=== PATIENT | female | born 1985 | race Caucasian/White ===

== ENCOUNTER 2022-03-26 07:27 | Inpatient (IN) | payer BC ==
[2022-03-26] VITALS (31 sets, daily range): BP systolic 106–150; BP diastolic 55–85
[~2022-03-26] VITALS: Ht 162.6 cm; Wt 94.7 kg
[~2022-03-26 07:27] MED LIST: AC325T PO; AC500T PO; AMOX500C2 PO; BSP10T PO; CIPR500T78 PO; CLC500CT PO; FRS325T PO; HYDR-3456 PO; HYDR-690 PO; HYDR1TAB PO; IBP600T1 PO; IRON1TAB94 PO; LORA10TA7 PO; LVT.05T PO; NITR100C3 PO; ONDAN4ODT PO; PANT40TA PO; PREN1TAB39 PO; PREN1TAB71 PO; PS30T PO; SERT25TA PO
--- OUTSIDE RECORDS SUMMARY | 2022-03-26 07:31 | XMS REPORT ---
Author Author [facility] Address Unknown Phone Unavailable Care Team Providers Care Burner Tender Name Role Phone Migration, Doctor Unavailable Unavailable PROBLEMS Type Condition ICD9-CM Code GNY86-CQ Code Onset Dates Condition S tatus W/U Status Risk SNOMED Code Notes Problem Insomnia, unspecified G47.00 Active confirmed 772967294 Problem Obstruction of bile duct K83.1 Active confirmed 91674164 Problem Other migraine without status migrainosus, not intractable G43.809 Active confirmed 82008887 Problem Herpes simplex without complication B00.9 Acti ve confirmed 07506595 Problem H/O nipple discharge Z87.898 Active confirmed 419858797 Problem Family history of breast cancer Z80.3 Active confi rmed 063591386 Problem Hypothyroidism, unspecified type E03.9 Active conf irmed 18319100 Problem Surveillance of contraceptive injection Z30.42 Active confirmed 242800789 Problem DUB (dysfunctional uterine bleeding) N93.8 Act gigi confirmed 67338034 Problem Dysthymia F34.1 Active confirmed 44335580 Problem Primary insomnia F51.01 Active confirmed 397 2004 Problem Autoimmune thyroiditis E06.3 Active confirmed 48765153 Problem Major depressive disorder, single episode, unspecified F32.9 Active confirmed 96828713 Problem Family history of diabetes mellitus Z83.3 Acti ve confirmed 018931826 Problem Hypothyroidism, unspecified E03.9 Active confirmed 41901679 Problem Seasonal allergic rhinitis, unspecified allergic rhinitis trigger J30.2 Active confirmed 720451622 Problem Calculus of kidney N20.0 Active confirmed 9 1011809 Problem Other chronic pain G89.29 Active confirmed 8 6655698 Problem LGSIL on Pap smear of cervix R87.612 Active con firmed [id number] Problem 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 Ac tive confirmed 863087370 Problem Other specified hypothyroidism E03.8 Active confir med 435771739 ALLERGIES Allergen (clinical drug ingredient) Drug/Non Drug Allergy do cumented on EMR Reaction Allergy Type Onset Date Status [place] Unknown Non Drug Allergy Activ e ENCOUNTERS from 1986 to 2022-02-14 Encounter Location Date Provider Diagnosis [facility] [address] [facility] [id number] [place] [address] 30 Mar, 2012 Doctor Migration IMMUNIZATIONS Vaccine Route Administration Date Status PRIVATE FLULAVAL QUAD 0.5ML (6 MO AND UP) 2019 IM Intramuscular Mar 06, 2020 Administered influenza (history) IM Intramuscular Mar 28, 2019 Administere d PRIVATE FLULAVAL QUAD 0.5ML (6 MO AND UP) 2018 IM Intramuscular Jul 17, 2018 Administered PRIVATE TDAP (BOOSTRIX) IM Intramuscular Jan 12, 2022 Adminis tered influenza IIV3 (history) Unknown Mar 05, 2013 Adminis tered influenza IIV3 (history) Unknown Feb 25, 2011 Adminis tered PRIVATE TDAP (ADACEL) Unknown Jan 29, 2013 Administer ed Influenza, seasonal, injectable (split), for 3 yrs and up Unknow n Mar 14, 2009 Administered SOCIAL HISTORY Sex Assigned At : Social History Observation Description Sex Assigned At Unknown Alcohol Screen (Audit-C) Question Answer Notes Did you have a drink containing alcohol in the past year? Ye s Points 4 Interpretation Positive How often did you have 6 or more drinks on one occasio n in the past year? Less than monthly (1 point) How many drinks did you have on a typica l day when you were drinking in the past year? 5 or 6 (2 points) How often did you have a drink containing alcohol in t he past year? Monthly or less (1 point) Sexual History Question Answer Notes Had sex in the past 12 months (vaginal, oral, or anal)? Yes Last menstrual period 08/26/2014 Have you ever had a Sexually transmitted disease? No Prevention strategies discussed: Other with Men only Use protection? No PHQ2 Question Answer Notes In the last 2 weeks, how often have you had little interest or pleasure in doing things? Not at all In the last 2 weeks, how often have you been feeling down, depressed, or hopeless? Not at all Total PHQ2 Score 0 Tobacco use other than smoking: Question Answer Notes Are you an other tobacco user? No REASON FOR REFERRAL No Information VITAL SIGNS Height 65 in Mar, Weight 171.2 lbs Mar, Temperature 97.6 degrees Fahrenheit Mar, Heart Rate 84 bpm Mar, Respiratory Rate 18 bpm Mar, Blood pressure systolic 112 mmHg Mar, Blood pressure diastolic 78 mmHg Mar, MEDICATIONS Medication SIG (Take, Route, Frequency, Duration) Notes Start Da te End Date Status Active Maranda Allergy 180 MG 1 tablet as needed Orally Once a day for 30 day(s) STOP ZYRTEC Feb, Active Levothyroxine Sodium 100 MCG TAKE ONE (1) TABLET BY ROSITA MALHOTRA ONCE DAILY IN THE MORNING ON AN EMPTY STOMACH for 30 Active PROCEDURES No Information RESULTS No Results REASON FOR VISIT No Information MEDICAL (GENERAL) HISTORY Type Description Date Medical History chronic bronchitis Medical History kidney stones Medical History Hypothyroidism Medical History anxiety Surgical History cholecystectomy-[facility] by [facility] 03/2010 Surgical History lithotripsy-[facility] by [facility] 11/2013 Surgical History tooth extraction 09/2021 Hospitalization History liver problems x 2 Hospitalization History gallbladder Hospitalization History kidney stones Goals Section No Information Health Concerns No Information MEDICAL EQUIPMENT No Information MENTAL STATUS No Information FUNCTIONAL STATUS No Information ASSESSMENTS No Information PLAN OF TREATMENT Next Appt Details Provider Name:MARK BALLESTEROS, 2022-02-25 04 :00:00 PM, [address] [place], [address], Provider Name:RODOLFO CHOUDHURY, 04:00:00 PM, [address] [place], [address], Provider Name:MARK BALLESTEROS 2022-03-11 04 :20:00 PM, [address] [place], [address], Provider Name:MARK BALLESTEROS 2022-03-16 04 :20:00 PM, [address] [place], [address], Provider Name:MARK BALLESTEROS 2022-03-23 04 :20:00 PM, [address] [place] [address], [place], [address], Insurance Providers Payer Name Payer Address Payer Phone Insured Name Patient Relati onship to Insured Coverage Start Date Coverage End Date Subscriber Number Group Nu mber [employer] OF [place] [address] [facility] [address] Kim Garay 2019 [id number] Repower Ins No Bill Kim Garay self [id number] MEDICATIONS ADMINISTERED Medication Instructions Date of Administration Dosage DEPO PROVERA (150 MG/ML) Jun, 150 mg DEPO PROVERA (150 MG/ML) Sep, 150 mg DEPO PROVERA (150 MG/ML) Nov, 150 mg DEPO MEDROL 40 MG/ML Aug, 40 mg BICILLIN LA/PENICILLIN G BENZATHINE Feb, 1.2 U BICILLIN LA/PENICILLIN G BENZATHINE May, [id number] U DEXAMETHASONE 4MG/ML (PER 1 ML) Aug, 4 mg DEPO PROVERA (150 MG/ML) Feb, 150 mg DEPO PROVERA (150 MG/ML) October, 150 mg
[2022-03-26] MEDS ORDERED: D5 LR IV SOLUTION 1,000 ML IV SCH (07:45)
--- NOTE | 2022-03-26 08:00 | History & Physical-OB ---
OB - Chief Complaint & HPI Date/Time Date of Admission: Date of Admission: Mar 26, 2022 at 07:27 Date seen by a Provider: Mar 26, 2022 Time Seen by a Provider: 07:54 Chief Complaint/History OB-Reason for Admission/Chief: Induction of Labor Hx : 3 Hx Para: 2 Gestational Age in Weeks: 40 Gestational Age in Days: 1 Indication for induction: other (Elective) History of Labs O+, Ab neg, Rub Imm HIV/HepB/C NR RPR NR (1st visit and 2nd trimester) Abnormal 1 hr GTT, Normal 3 hr GTT GBS neg Allergies and Home Medications Allergies Coded Allergies: citric acid (Unverified Allergy, Unknown, 03/26/22) Patient Home Medication List Home Medication List Reviewed: Yes Ciprofloxacin HCl (Cipro) 500 Mg Tablet, 500 MG PO BID Prescribed by: VARGHESE STARR on 11/01/131956 Hydrocodone/Acetaminophen (Vicodin Es 7.5-300 mg Tablet) 1 Each Tablet, 1 TAB PO Q4-6HR PRN for PAIN Prescribed by: VARGHESE STARR on 11/01/131956 Ibuprofen (Motrin) 600 Mg Tab, 600 MG PO Q6H Prescribed by: JOE FLORENCE on 04/25/13 1110 Levothyroxine Sodium (Levothyroxine 50 Mcg Tab) 50 Mcg Tablet, 50 MCG PO DAILY, (Reported) Entered as Reported by: DAPHNIE SALAZAR on 08/01/10 1251 Loratadine (Loratadine) 10 Mg Tablet, 10 MG PO DAILY, (Reported) Entered as Reported by: MICKY DIAL on 04/13/131408 Pantoprazole Sodium (Pantoprazole Sodium) 40 Mg Tablet.dr, 40 MG PO DAILY, (Reported) Entered as Reported by: ANDRZEJ SAWYER on 11/01/131919 Vit/Fe Fumarate/Fa ( Vitamin Tablet) 1 Each Tablet, 1 EACH PO DAILY, (Reported) Entered as Reported by: LAM ARANGO on 12/22/122024 Sertraline Hcl (Zoloft) 25 Mg Tablet, 25 MG PO DAILY, (Reported) Entered as Reported by: MICKY DIAL on 04/13/131408 OB - History Hx of Present Care: Yes Ultrasounds: Normal mid trimester US Obstetrical Complications: None Medical Complications: Other (Hypothyroidism) Obstetrical History Hx : 3 Hx Para: 2 Hx # Term Pregnancies: 2 Number of Living Children: 2 Hx Termination: No Hx Multiple Gestation: No Hx Stillbirth: No Hx Complication: No Hx Induced Hypertens: No Hx Maternal Gestational Diabet: No Delivery History Hx Dystocia: No Hx Large For Gestational Age I: No Hx Small for Gestational Age I: No Hx Section: No Hx Vaginal Delivery Post C-Sec: No Hx Blood Disorders: Yes (Anemia) Adverse Rxn to Tranfusion: No Patient Past Medical History Hypothyroidism Social History/Family History Alcohol Use: Denies Use Recreational Drug Use: No Smoking Cessation: Never smoker 2nd Hand Smoke Exposure: No Immunizations Hepatitis A: Yes Hepatitis B: Yes Tetanus Booster (TDap): Less than 5yrs Rubella: immune RPR/VDRL: Negative GBS Status: Negative HBsAG: Negative OB - Admission Exam Physical Exam HEENT: NCAT Heart: Rhythm Normal Lungs: Clear Abdomen: Gravid Cervical Dilatation: 4cm Effacement: 100% Station: -1 Membranes: Intact Heart Rate: 140's Accelerations: Accelerations Present Decelerations: No Decelerations Short Term Variability: Present Scrap Handler Variability: Average (6-25) Contractions on Admission: >10 Minutes Apart Ch Scoring Tool (Modified) Dilation (cm): 3-4cm (2) Effacement (%): 80-100% (3) Descent/Station: -1,0 (2) Cervix Consistency: Soft (2) Cervix Position: Anterior (2) Add 1 point for: Each previous vaginal delivery (1) Ch Score: 13 OB - Assessment/Plan/Diagnosis Assessment Assessment: induction of labor Admission Dx Third Trimester 40 week gestation Hypothyroidism in Admission Status: Inpatient Order (span 2 midnights) Reason for Inpatient Admission: Labor and post care Plan Other Plan 36 yo @ 40.1 wga here for elective IOL Plan - Expectant management - AROM this AM - GBS Neg - Ok for epidural if patient desires Copy Copies To 1: MARK BALLESTEROS MD, HOLLY R MD Mar 26, 2022 07:59
[2022-03-26 08:13] LABS: BILIRUBIN,URINE NEGATIVE (NEGATIVE); CLARITY,URINE CLEAR; COLOR,URINE YELLOW; GLUCOSE, URINE (UA) NEGATIVE (NEGATIVE); KETONES,URINE NEGATIVE (NEGATIVE); LEUKOCYTE ESTERASE ,URINE NEGATIVE (NEGATIVE); NITRITE,URINE NEGATIVE (NEGATIVE); PH,URINE 6.5 (5-9); PROTEIN,URINE NEGATIVE (NEGATIVE)
[2022-03-26 08:26] LABS: BASOPHILS # (AUTO) 0.1 10^3/uL (0.0-0.1); BASOPHILS % (AUTO) 1 % (0-10); EOSINOPHILS # (AUTO) 0.2 10^3/uL (0.0-0.3); EOSINOPHILS % (AUTO) 2 % (0-10); HEMATOCRIT 31 % (35-52); HEMOGLOBIN 9.6 g/dL (11.5-16.0); LYMPHOCYTES # (AUTO) 1.2 10^3/uL (1.0-4.0); LYMPHOCYTES % (AUTO) 13 % (12-44); MEAN CORPUSCULAR HEMOGLOBIN 24 pg (25-34); MEAN CORPUSCULAR HGB CONC 31 g/dL (32-36); MEAN CORPUSCULAR VOLUME 76 fL (80-99); MEAN PLATELET VOLUME 10.9 fL (9.0-12.2); MONOCYTES # (AUTO) 0.6 10^3/uL (0.0-1.0); MONOCYTES % (AUTO) 7 % (0-12); NEUTROPHILS # (AUTO) 7.1 10^3/uL (1.8-7.8); NEUTROPHILS % (AUTO) 77 % (42-75); PLATELET COUNT 298 10^3/uL (130-400); WHITE BLOOD COUNT 9.3 10^3/uL (4.3-11.0)
[2022-03-26 08:29] LABS: BACTERIA,URINE TRACE /HPF; WBC,URINE 0-2 /HPF
[2022-03-26] MEDS ORDERED: fentaNYL 2 mcg/ml BUPIVA 0.125 100 ML ONE (09:09)
[2022-03-26] MEDS ORDERED: BUPIVACAINE 0.25% 30 ML (SENSORCAINE) VIAL ONE (09:42)
[2022-03-26] MEDS ORDERED: BUPIVACAINE 0.5% 30 ML (SENSORCAINE) VIAL ONE (09:42)
[2022-03-26] MEDS ORDERED: fentaNYL INJ 100 MCG/2 ML AMP ONE (09:42)
[2022-03-26] MEDS ORDERED: fentaNYL 2 mcg/ml BUPIVA 0.125 100 ML EPI SCH (10:00)
[2022-03-26] MEDS ORDERED: NALOXONE 0.4 MG/ML 1 ML (NARCAN) VIAL IV PRN (10:00)
[2022-03-26] MEDS ORDERED: ONDANSETRON 4 MG/2 ML (SDV) Z0FRAN IV PRN (10:00)
[2022-03-26] MEDS ORDERED: LACTATED RINGERS 1,000 ML IV ONE ×2 (10:00)
[2022-03-26] MEDS ORDERED: fentaNYL INJ 100 MCG/2 ML AMP INJ ONE (10:00)
[2022-03-26] MEDS ORDERED: OXYTOCIN PRE-MIX DRIP 500 ML IV SCH (10:30)
[2022-03-26] MEDS ORDERED: OXYTOCIN PRE-MIX DRIP 500 ML IV ONE (10:31)
[2022-03-26] MEDS: OXYTOCIN PRE-MIX DRIP 500 ML IV SCH ×2 (13:15→13:47)
[2022-03-26] MEDS ORDERED: CATHETER FLUSH 10 ML SYR IV SCH (14:00)
[2022-03-26] MEDS ORDERED: BENZOCAINE/MENTHOL (DERMOPLAST) 56 ML CAN TP PRN (16:00)
[2022-03-26] MEDS ORDERED: WITCH HAZEL(TUCKS) 40 EA JAR TOP PRN (16:00)
--- NOTE | 2022-03-26 16:20 | OB Labor & Delivery Record ---
Vag Delivery Note Vag Delivery Note Date of Delivery: 03/26/22 Preoperative Diagnosis: Kim Garay is a (36 /Para 3 / 2, Gestational Age (wks)40.1 wga here for elective IOL Postoperative Diagnosis: Same Surgeon: MARK BALLESTEROS MD Postdoctoral Fellow: None Anesthesia: Epidural Delivery Type: @ 1310 Findings: Viable female , apgars 8/8, weight 7#14, 3560 grams Lacerations: None Intact placenta with 3 vessel cord. No nuchal cord, body cord or shoulder dystocia Estimated Blood Loss: 100 ml Complications: None Condition: Stable Description of Procedure: The patient is a 36 year old female who presented for elective IOL. She was admitted and informed consent was obtained. Her labor course was remarkable for augmentation with pitocin. She progressed to complete dilatation and began to push. She was then set up for delivery. The 's head was delivered atraumatically in the BERTIN position. The shoulders and remainder of the 's body were then delivered without difficulty. Upon delivery, the head was held below the level of the perineum and the mouth and nares were bulb suctioned. was vigorous and placed on maternal abdomen. The cord was doubly clamped and cut by FOB after 2 min delay and the was attented to by the pediatric staff on maternal abdomen. An intact placenta with 3-vessel cord delivered via Mukund and there was found to be minimal bleeding.~ Vigorous fundal massage was performed and the fundus was found to be firm. IV oxytocin was given. Examination of the vagina and perineum revealed no lacerations that required repair. Following the repair, sponge, instrument and needle counts were correct. Mom and baby were both in stable condition in the labor suite. Vitals - Labs Vital Signs - I&O Vital Signs Date Time Temp Pulse Resp B/P (MAP) Pulse Ox O2 Delivery O2 Flow Rate FiO2 03/26/22 12:45 69 18 118/75 (89) 99 Room Air 03/26/22 12:30 65 18 114/72 (86) 99 Room Air 03/26/22 12:15 63 18 110/66 (81) 99 Room Air 03/26/22 12:00 59 18 111/68 (82) 100 Room Air 03/26/22 11:45 64 18 108/70 (83) 99 Room Air 03/26/22 11:30 64 18 118/77 (91) 99 Room Air 03/26/22 11:15 71 18 119/79 (92) 99 Room Air 03/26/22 11:00 75 18 116/76 (89) 98 Room Air 03/26/22 10:45 35.4 76 18 110/69 (83) 98 Room Air 03/26/22 10:40 76 18 150/58 (88) 98 Room Air 03/26/22 10:30 77 18 117/78 (91) 97 Room Air 03/26/22 10:25 89 18 109/64 (79) 97 Room Air 03/26/22 10:20 90 18 106/69 (81) 98 Room Air 03/26/22 10:15 93 18 114/68 (83) 98 Room Air 03/26/22 10:10 86 18 110/69 (83) 98 Room Air 03/26/22 10:05 86 18 132/80 (97) 98 Room Air 03/26/22 10:00 93 18 138/85 (102) 99 Room Air 03/26/22 09:55 86 18 136/82 (100) Room Air 03/26/22 09:15 85 18 127/81 (96) Room Air 03/26/22 08:45 85 18 131/76 (94) Room Air 03/26/22 08:15 89 18 131/77 (95) Room Air 03/26/22 07:19 35.8 95 18 98 Room Air Labs Laboratory Tests 03/26/22 07:57: White Blood Count 9.3, Red Blood Count 4.02, Hemoglobin 9.6L, Hematocrit 31L, Mean Corpuscular Volume 76L, Mean Corpuscular Hemoglobin 24L, Mean Corpuscular Hemoglobin Concent 31L, Red Cell Distribution Width 14.5, Platelet Count 298, Mean Platelet Volume 10.9, Immature Granulocyte % (Auto) 1, Neutrophils (%) (Auto) 77H, Lymphocytes (%) (Auto) 13, Monocytes (%) (Auto) 7, Eosinophils (%) (Auto) 2, Basophils (%) (Auto) 1, Neutrophils # (Auto) 7.1, Lymphocytes # (Auto) 1.2, Monocytes # (Auto) 0.6, Eosinophils # (Auto) 0.2, Basophils # (Auto) 0.1, Immature Granulocyte # (Auto) 0.1 03/26/22 08:00: Urine Color YELLOW, Urine Clarity CLEAR, Urine pH 6.5, Urine Specific [place] 1.020, Urine Protein NEGATIVE, Urine Glucose (UA) NEGATIVE, Urine Ketones NEGATIVE, Urine Nitrite NEGATIVE, Urine Bilirubin NEGATIVE, Urine Urobilinogen 0.2, Urine Leukocyte Esterase NEGATIVE, Urine RBC (Auto) NEGATIVE, Urine RBC NONE, Urine WBC 0-2, Urine Squamous Epithelial Cells 2-5, Urine Crystals NONE, Urine Bacteria TRACE, Urine Casts NONE, Urine Mucus SMALLH, Urine Culture Indicated NO MARK BALLESTEROS MD Mar 26, 2022 16:20
[2022-03-26] MEDS: ACETAMINOPHEN 500 MG TAB (TYLENOL) PO SCH (17:26)
[2022-03-26] MEDS: IBUPROFEN 600 MG (MOTRIN) TAB PO SCH (17:26)
[2022-03-26] MEDS ORDERED: DOCUSATE SODIUM 100 MG (COLACE) CAP PO SCH (21:00)
[2022-03-27 00:15] VITALS: BP 118/57
[2022-03-27] MEDS: IBUPROFEN 600 MG (MOTRIN) TAB PO SCH ×3 (00:16→13:45)
[2022-03-27] MEDS: ACETAMINOPHEN 500 MG TAB (TYLENOL) PO SCH ×3 (00:17→13:45)
[2022-03-27 04:06] VITALS: BP 107/62
[2022-03-27 06:01] LABS: BASOPHILS % (AUTO) 1 % (0-10); EOSINOPHILS # (AUTO) 0.2 10^3/uL (0.0-0.3); EOSINOPHILS % (AUTO) 2 % (0-10); HEMATOCRIT 27 % (35-52); HEMOGLOBIN 8.1 g/dL (11.5-16.0); LYMPHOCYTES # (AUTO) 1.6 10^3/uL (1.0-4.0); LYMPHOCYTES % (AUTO) 18 % (12-44); MEAN CORPUSCULAR HEMOGLOBIN 24 pg (25-34); MEAN CORPUSCULAR HGB CONC 31 g/dL (32-36); MEAN CORPUSCULAR VOLUME 78 fL (80-99); MEAN PLATELET VOLUME 10.4 fL (9.0-12.2); MONOCYTES # (AUTO) 0.7 10^3/uL (0.0-1.0); MONOCYTES % (AUTO) 8 % (0-12); NEUTROPHILS # (AUTO) 5.9 10^3/uL (1.8-7.8); NEUTROPHILS % (AUTO) 70 % (42-75); PLATELET COUNT 255 10^3/uL (130-400); WHITE BLOOD COUNT 8.5 10^3/uL (4.3-11.0)
[2022-03-27] MEDS ORDERED: PRENATAL VITAMIN 1 EA TAB PO SCH (07:00)
[2022-03-27 09:30] VITALS: BP 109/64
--- NOTE | 2022-03-27 10:35 | Discharge Summary ---
Diagnosis/Chief Complaint Date of Admission Mar 26, 2022 at 07:27 Date of Discharge 03/27/22 Admission Diagnosis Admission Diagnosis Third Trimester 40 completed weeks Discharge Diagnosis @ 40 weeks Anemia of acute blood loss Discharge Summary-Simple/Stand Procedures Epidural placement Discharge Physical Examination Allergies: Coded Allergies: citric acid (Unverified Allergy, Unknown, 03/26/22) Vitals & I&Os Vital Sign - Last 12Hours Date Time Temp Pulse Resp B/P (MAP) Pulse Ox O2 Delivery O2 Flow Rate FiO2 03/27/22 04:06 36.2 81 18 107/62 (77) 96 Room Air Intake and Output 03/27/22 00:00 Intake Total 1000 ml Balance 1000 ml General Appearance: Alert, Oriented X3, Cooperative, No Acute Distress HEENT: Mucous Memb Moist/[place] Respiratory: Clear to Auscultation, Normal Air Movement Cardiovascular: Regular Rate, No Murmurs Abdominal: Normal Bowel Sounds, Soft, No Tenderness, Other (fundus firm and below umbilicus) Extremities: Other (trace swelling) Skin: No Rashes Neuro: Normal Speech, Strength at 5/5 X4 Ext, Cranial Nerves 3-12 NL Psych/Mental Status: Mental Status NL, Mood NL Hospital Course See final discharge diagnosis. Discussion & Recommendations 36 yo F G3 now P3 delivered term female @ 40.1 wga via uncomplicated Discharge Condition at discharge stable Instructions to patient/family Please see electronic discharge instructions given to patient. Discharge Medications Reviewed and agree with Discharge Medication list on patient's Discharge Instruction sheet Copy Copies To 1: MARK BALLESTEROS MD, HOLLY R MD Mar 27, 2022 10:35
[2022-03-27] MEDS ORDERED: FERR-65 PO (11:19)
[2022-03-27] MEDS ORDERED: DOCU100C37 PO (11:19)
--- NOTE | 2022-03-27 11:20 | Discharge Summary ---
Discharge Inst-[facility] Reconcile Patient Problems Problems Reviewed?: Yes Depart Medications New, Converted or Re-Newed RX: Transmitted to Pharmacy New Medications: Ferrous Sulfate (Feosol) 325 Mg (65 Mg Iron) Tablet 325 MG PO DAILY, #30 TAB Docusate Sodium (Docusate Sodium) 100 Mg Capsule 100 MG PO BID, #14 CAP Continued Medications: Ibuprofen (Motrin) 600 Mg Tab 600 MG PO Q6H for PAIN, #90 0 Refills Levothyroxine Sodium (Levothyroxine 50 Mcg Tab) 50 Mcg Tablet 50 MCG PO DAILY Loratadine (Loratadine) 10 Mg Tablet 10 MG PO DAILY Pantoprazole Sodium (Pantoprazole Sodium) 40 Mg Tablet.dr 40 MG PO DAILY, TAB Vit/Fe Fumarate/Fa ( Vitamin Tablet) 1 Each Tablet 1 EACH PO DAILY Sertraline Hcl (Zoloft) 25 Mg Tablet 25 MG PO DAILY Discontinued Medications: Ciprofloxacin HCl (Cipro) 500 Mg Tablet 500 MG PO BID, #10 CAP Hydrocodone/Acetaminophen (Vicodin Es 7.5-300 mg Tablet) 1 Each Tablet 1 TAB PO Q4-6HR PRN for PAIN, #15 TAB FOR PAIN Follow Up/Instructions Goal/Follow Up: 6 weeks with Darlene Activity Activity: Activity as Tolerated Driving Instructions: You May Drive Nothing Inside Vagina: No Douching, No [place], No Tampons Diet Discharge Diet: No Restrictions Symptoms to Report to : Swelling Increased, Bleeding Excessive, Fever Over 101 Degrees F Copies To 1: MARK BALLESTEROS MD, HOLLY R MD Mar 27, 2022 11:20
[2022-03-27 14:07] VITALS: BP 108/56
--- NOTE | 2022-03-29 07:27 | Anesthesia-Regional Post-Op ---
Regional Patient Condition Mental Status: Alert, Oriented x3 Circulation: Same as Pre-Op Headache: Absent Sensation: Full Recovery Motor Block: Absent Post Op Complications Complications None Follow Up Care/Instructions Patient Instructions None needed. Anesthesia/Patient Condition Patient is doing well, no complaints, stable vital signs, no apparent adverse anesthesia problems. No complications reported per nursing. SHADI FAIR CRNA Mar 29, 2022 07:27
== END 2022-03-27 15:50 | disposition home or self-care (01) | DRG 806 ==
LOC: LDRP 07:27
PROVIDERS: ADMIT Family Medicine; ATTEND Family Medicine
PROC: 10E0XZZ Delivery of Products of Conception, External Approach (ICD-10-PCS; principal; 2022-03-26)
PROC: 10907ZC Drainage of Amniotic Fluid, Therapeutic from Products of Conception, Via Natural or Artificial Opening (ICD-10-PCS; 2022-03-26)
PROC: 3E033VJ Introduction of Other Hormone into Peripheral Vein, Percutaneous Approach (ICD-10-PCS; 2022-03-26)
DX: O48.0 Post-term pregnancy (principal); D62 Acute posthemorrhagic anemia; Z37.0 Single live birth; Z3A.40 40 weeks gestation of pregnancy; O99.284 Endocrine, nutritional and metabolic diseases complicating childbirth; E03.9 Hypothyroidism, unspecified; O90.81 Anemia of the puerperium
CPT/HCPCS: 36415; 81000; 85025; 86780; 86850; 86900; 86901